=== PATIENT | female | born 1990 | race African-American/Black ===

== ENCOUNTER 2024-11-14 18:00 | Emergency (ER) | payer OTHER ==
[2024-11-14 18:15] VITALS: BP 113/76; PULSE 79; RESP 18; TEMP 99; BMI 20.7
[2024-11-14] MEDS ORDERED: IBUPROFEN 600 MG TABLET (FP) PO ONE (18:47)
[2024-11-14] MEDS: IBUPROFEN 600 MG TABLET (FP) PO ONE (18:51)
[2024-11-14 20:20] LABS: HIV INTERPRETATION NEGATIVE (NEGATIVE)
[2024-11-14 20:21] LABS: HCV DIAGNOSTIC IN-HOUSE W/RFLX NON-REACTIVE (NONREACTIVE)
== END 2024-11-14 19:22 | disposition home or self-care (01) ==
LOC: JER 18:00 → JERFT 18:00
DX: S89.92XA Unspecified injury of left lower leg, initial encounter (principal); W22.09XA Striking against other stationary object, initial encounter
CPT/HCPCS: 36415; 73560-TC-LT-FY; 86803; 87389; 99284-25